=== PATIENT | male | born 1965 | race Caucasian/White ===

== ENCOUNTER 2016-06-10 17:10 | Emergency (ER) | payer OTHER ==
[~2016-06-10] VITALS: Ht 188 cm; Wt 90.7 kg
--- NOTE | 2016-06-10 17:10 | NUR ---
Kirsten CRONIN, OCCUPATIONAL HEALTH NURSE MANAGER AND JESSICA SOUSAP ATTENDING CARDIOPULMONARY ARREST OCCUPATIONAL HEALTH NURSE MANAGER'S PROVIDING INTUBATION ASSIST, AMBU BAG AND CHEST COMPRESSION
--- NOTE | 2016-06-10 17:19 | NUR ---
CPR IN PROGRESS.
[2016-06-10 17:33] VITALS: BP 0/0
--- NOTE | 2016-06-10 17:36 | NUR ---
PATIENT IS A MIDDLE AGE MALE BIB EMS FROM [facility] IN FULL ARREST TO BED [address] RINALDI AT BEDSIDE SEE CODE SHEET FOR DETAILS.
--- NOTE | 2016-06-10 17:50 | NUR ---
[place] [facility] X2 AT BEDSIDE.
--- NOTE | 2016-06-10 18:18 | NUR ---
BOTH APPRENTICESHIP TRAINING REPRESENTATIVE AND [employer] NOTIFIED AND APPRENTICESHIP TRAINING REPRESENTATIVE WILL BE HERE IN APPROX 30 MINUTES.
--- NOTE | 2016-06-10 19:12 | NUR ---
dental ceramist helper arrived at bedside.
--- NOTE | 2016-06-10 19:34 | NUR ---
FOUND PHONE NUMBER FOR FATHER LUIGI AND NOTIFIED HIM OF . GAVE HIME CORONERS NUMBER.
[2016-06-10 19:35] VITALS: BP 0/0
--- NOTE | 2016-06-10 19:59 | NUR ---
ALL DOCUMENTS SIGNED BY SECURITY RESEARCHER NAVEED GARCÍA WITH Warren TAMAYO RN. GAVE COPIES TO SECURITY RESEARCHER.
--- NOTE | 2016-06-10 20:43 | NUR ---
SPOKE TO FAMILY LEILANI RUSH; GAVE FAMILY E M ASSEMBLER'S INFORMATION TO F/U
== END 2016-06-10 17:27 | disposition expired ==
LOC: MED 17:10 → EDBD 17:10 → MED 17:27
DX: I46.9 Cardiac arrest, cause unspecified (principal)